=== PATIENT | female | born 1975 | race Caucasian/White ===

== ENCOUNTER 2020-09-03 19:51 | Emergency (ER) | payer SELFPAY ==
[~2020-09-03] VITALS: Ht 160 cm; Wt 63.5 kg
[~2020-09-03 19:51] MED LIST: AMOXICILLIN500 MG PO; AMOXIL500 MG PO; ANAPROX DS550 MG PO; ANUCORT-HC25 MG RC; AUGMENTIN 875 M1 TAB PO; AUGMENTIN 875875 MG PO; CEPHALEXIN500 M1 PO; COLACE100 MG PO; FLONASE 0.05% 121 EA NAS; FLONASE0.05 MG/AC NS; IBU800 M1 PO; KLONOPIN1 MG PO; LORATADINE10 MG PO; Lidex 0.05% Cre15 GM T; MOTRIN800 MG PO; NORCO 325 MG-51 TAB PO; NORFLEX100 MG PO; PREDNICOT20 MG PO; ROBITUSSIN AC 110 ML PO; SYNTHROID,LEV100 MCG PO; Synthroid,Levo88 MCG PO; TOBRADEX 0.1%-0.5 ML OPH; VISTARIL25 M2 PO; VOLTAREN50 M1 PO; ZITHROMAX Z PA250 MG PO; ZOFRAN ODT4 MG PO
[2020-09-03 20:31] VITALS: BP 121/69
[2020-09-03] MEDS ORDERED: Motrin,Rufen800 MG PO (23:17)
== END 2020-09-04 02:00 | disposition home or self-care (01) ==
LOC: ED 19:51
DX: S86.911A Strain of unspecified muscle(s) and tendon(s) at lower leg level, right leg, initial encounter (principal); F17.200 Nicotine dependence, unspecified, uncomplicated; Z88.8 Allergy status to other drugs, medicaments and biological substances; Z88.6 Allergy status to analgesic agent; Z79.899 Other long term (current) drug therapy; Z79.2 Long term (current) use of antibiotics; Z98.51 Tubal ligation status; Z90.711 Acquired absence of uterus with remaining cervical stump; X50.1XXA Overexertion from prolonged static or awkward postures, initial encounter; Y93.89 Activity, other specified; Y92.89 Other specified places as the place of occurrence of the external cause; Y99.8 Other external cause status

== ENCOUNTER 2021-09-27 16:15 | Emergency (ER) | payer SELFPAY ==
[~2021-09-27] VITALS: Wt 65.8 kg
[~2021-09-27 16:15] MED LIST changes: +Motrin,Rufen800 MG PO
[2021-09-27 16:23] VITALS: BP 143/71
[2021-09-27] MEDS ORDERED: AMOX-CLAV 875-1 EACH PO (18:55)
[2021-09-27] MEDS ORDERED: PREDNISONE20 M1 PO (18:55)
== END 2021-09-27 19:03 ==
LOC: ED 16:15
DX: J02.0 Streptococcal pharyngitis (principal); Z88.8 Allergy status to other drugs, medicaments and biological substances; Z79.899 Other long term (current) drug therapy; Z79.2 Long term (current) use of antibiotics; Z98.51 Tubal ligation status; Z90.710 Acquired absence of both cervix and uterus